=== PATIENT | male | born 1990 | race Caucasian/White ===

== ENCOUNTER → 2020-10-04 | Outpatient (CLI) | payer BC, MEDICAID ==
[~2020-10-04] MED LIST: GABA-826 PO; IRON PO; LIPA1CAP PO; MIDODRINE PO; MORP30TA PO; OMEPRAZOLE PO; OXYC10TA6 PO; PROP10TA16 PO; SENN-190 PO; VITAMIN D PO
[2020-10-04 12:08] LABS: BASOPHILS % (AUTO) 0 % (0-1); EOSINOPHILS % (AUTO) 4 % (1-7); LYMPHOCYTES % (AUTO) 18 % (22-44); MEAN CORPUSCULAR HGB CONC 33.8 g/dL (33.2-36.2); MEAN PLATELET VOLUME 7.5 fL (7.4-10.4); MONOCYTES % (AUTO) 11 % (2-9); NEUTROPHILS % (AUTO) 67 % (42-75); PLATELET COUNT 548 x10^3/uL (130-400); RED BLOOD COUNT 5.73 x10^6/uL (4.38-5.82); RED CELL DISTRIBUTION WIDTH 15.9 % (9.4-14.8)
[2020-10-04 12:10] LABS: ANION GAP 4 mmol/L (5-15); CALCIUM 9.8 mg/dL (8.5-10.1); CHLORIDE 103 mmol/L (98-107); CREATININE 0.66 mg/dL (0.7-1.3); INTERNATIONAL NORMALIZED RATIO 1.01 (0.93-1.1); PROTHROMBIN TIME 10.8 Seconds (9.6-11.5)
[2020-10-04 12:10] LABS: MICROSCOPIC INDICATED
== END | disposition home or self-care (01) ==
LOC: STAR 10:58
PROVIDERS: ATTEND Urology
DX: Z01.812 Encounter for preprocedural laboratory examination (principal); Z20.822 Contact with and (suspected) exposure to COVID-19
CPT/HCPCS: 36415; 80048; 81001; 85025; 85610; 87086; U0003; U0005

== ENCOUNTER 2020-10-11 09:49 | Day surgery (SDC) | payer BC, MEDICAID ==
[~2020-10-11] VITALS: Ht 188 cm; Wt 74.6 kg
[2020-10-11 10:19] VITALS: BP 116/79
[2020-10-11] MEDS ORDERED: CHLORHEXIDINE 15 ML UDC ONE (10:29)
[2020-10-11] MEDS ORDERED: LACTATED RINGERS 1,000 ML IV SCH (10:30)
[2020-10-11] MEDS ORDERED: CHLORHEXIDINE 15 ML UDC PO ONE (10:30)
[2020-10-11] MEDS ORDERED: MIDAZOLAM 1 MG/ML, 2ML ONE (10:39)
[2020-10-11] MEDS ORDERED: FENTANYL PF 100 MCG/2ML ONE ×2 (10:39→14:13)
[2020-10-11] MEDS ORDERED: OMNIPAQUE 350 MG/ML, 50 ML BOTTLE ONE (12:34)
[2020-10-11] MEDS ORDERED: PROPOFOL 10 MG/ML, 20ML ONE ×6 (12:44→13:06)
[2020-10-11] MEDS ORDERED: CIPROFLOXACIN/PMX 400MG/200ML 200 ML ONE (12:51)
[2020-10-11] MEDS ORDERED: CEFAZOLIN 1,000 MG ONE (13:06)
[2020-10-11] MEDS ORDERED: DEXAMETHASONE 4 MG/ML, 1ML ONE (13:06)
[2020-10-11] MEDS ORDERED: ONDANSETRON 2MG/ML, 2ML ONE (13:06)
[2020-10-11] MEDS ORDERED: OXYcodone 5 MG/5 ML ORAL.SOL UDC PO PRN (13:30)
[2020-10-11] MEDS ORDERED: LORazepam 2 MG/ML, 1ML IVPush PRN (13:30)
[2020-10-11] MEDS ORDERED: ACETAMINOPHEN 325 MG TABLET PO PRN (13:30)
[2020-10-11] MEDS ORDERED: ALBUTEROL/IPRATROPIUM 2.5MG/0.5MG, 3 ML NPPB PRN (13:30)
[2020-10-11] MEDS ORDERED: PROMETHAZINE 25 MG SUPP PR PRN (13:30)
[2020-10-11] MEDS ORDERED: MEPERIDINE/PF 25MG/0.5ML IVPush PRN (13:30)
[2020-10-11] MEDS ORDERED: PROMETHAZINE 25 MG/ML, 1ML IVPush PRN (13:30)
[2020-10-11] MEDS ORDERED: ONDANSETRON 2MG/ML, 2ML IVPush PRN (13:30)
[2020-10-11] MEDS ORDERED: METHOCARBAMOL 1,000 MG in DEXTROSE 5% 100 ML IV PRN (13:30)
[2020-10-11] MEDS: FENTANYL PF 100 MCG/2ML IV PRN ×2 (14:10→14:20)
[2020-10-11] MEDS ORDERED: ACETAMINOPHEN 650 MG/20.3 ML UDC ONE (14:13)
[2020-10-11] MEDS ORDERED: OXYcodone 5 MG/5 ML ORAL.SOL UDC ONE (14:13)
[2020-10-11] MEDS ORDERED: HYDROmorphone 2 MG/ML, 1ML ONE (14:37)
[2020-10-11] MEDS: HYDROmorphone 1 MG/ML, 1ML INJ IVPush PRN (14:45)
== END 2020-10-11 16:05 | disposition home or self-care (01) ==
LOC: OUT 09:49
PROVIDERS: ATTEND Urology
DX: Z46.6 Encounter for fitting and adjustment of urinary device (principal); N13.1 Hydronephrosis with ureteral stricture, not elsewhere classified; Z79.891 Long term (current) use of opiate analgesic; Z79.899 Other long term (current) drug therapy; Z87.440 Personal history of urinary (tract) infections; Z87.891 Personal history of nicotine dependence; Z98.890 Other specified postprocedural states
CPT/HCPCS: 52332; 74420; C1758; C1769; C2617; J0744; J1100; J1170; J2250; J2405; J2704; J2800; J3010; J7120; Q9967; J0690